=== PATIENT | male | born 1965 | race Two or more races ===

== ENCOUNTER 2022-07-16 07:04 | Emergency (ER) | payer SELFPAY ==
[~2022-07-16] VITALS: Ht 175.3 cm; Wt 97.2 kg
[2022-07-16] MEDS ORDERED: LIDOCAINE 1% HCL (LOCAL ANESTH.) INJ 20ML MDV IJ ONE (08:15)
[2022-07-16 08:28] VITALS: BP 168/77
[2022-07-16] MEDS ORDERED: CEPH-510 PO (08:43)
[2022-07-16] MEDS ORDERED: TETANUS-DIPTH-ACEL PERTUSSIS 0.5ML SYR Tdap IM ONE (08:45)
== END 2022-07-16 08:47 | disposition home or self-care (01) ==
LOC: ER 07:04
DX: S61.210A Laceration without foreign body of right index finger without damage to nail, initial encounter (principal); E11.9 Type 2 diabetes mellitus without complications; F17.210 Nicotine dependence, cigarettes, uncomplicated; F14.10 Cocaine abuse, uncomplicated; W26.9XXA Contact with unspecified sharp object(s), initial encounter; Y93.89 Activity, other specified; Y92.89 Other specified places as the place of occurrence of the external cause; Y99.8 Other external cause status
CPT/HCPCS: 12001; 90471; 90715; 99283; J2001